=== PATIENT | male | born 1955 | race Caucasian/White ===

== ENCOUNTER 2020-06-11 07:29 | Outpatient (REF) | payer BC, SELFPAY ==
[2020-06-11 08:20] LABS: MANUAL DIFF FLAG NO
[2020-06-11 08:36] LABS: Basophils Percent Auto 0.7 % (0-2); Eosinophils Absolute Auto 0.2 X10*3/uL (0.0-0.4); Eosinophils Percent Auto 5.2 % (0-4); Hemoglobin 15.2 g/dl (14.0-18.0); Imm Gran Abs Auto 0.01 X10*3/uL (0.00-0.03); Imm Gran Pct Auto 0.2 % (0.0-0.4); Lymphocytes Absolute Auto 1.4 X10*3/uL (1.2-4.9); Lymphocytes Percent Auto 32.2 % (20-40); Mean Corpuscular HGB Conc 33.8 g/dl (31.0-36.0); Mean Corpuscular Hemoglobin 29.2 pg (27.0-33.0); Mean Corpuscular Volume 86.5 fL (80-98); Mean Platelet Volume 10.1 fL (9.4-12.4); Monocytes Absolute Auto 0.3 X10*3/uL (0.1-1.2); Monocytes Percent Auto 7.6 % (2-11); Neutrophils Absolute Auto 2.3 X10*3/uL (2.0-8.3); Neutrophils Percent Auto 54.1 % (45-73); Platelet Count 155 X10*3/uL (160-400); Red Cell Distribution Width 13.2 % (11.0-16.0); White Blood Count 4.2 X10*3/uL (4.8-10.8)
[2020-06-11 08:58] LABS: Alanine Aminotransferase 24 U/L (0-40); Albumin Level 4.4 g/dL (3.5-5.0); Alkaline Phosphatase 77 U/L (39-117); Anion Gap 12 (12-20); Aspartate Amino Transferase 22 U/L (5-37); Bilirubin Total 1.4 mg/dL (0.0-1.0); Blood Urea Nitrogen 22 mg/dL (9-16); Calcium 9.1 mg/dL (8.4-10.2); Carbon Dioxide 26 mmol/L (22-29); Chloride 106 mmol/L (96-108); Cholesterol 149 mg/dL; Estimated Glomerular Filt Rate > 60; Glucose Random 101 mg/dL (60-115); HDL Cholesterol 54 mg/dL; LDL Cholesterol Calculated 81 mg/dl; Potassium 4.8 mmol/L (3.3-5.1); Sodium 139 mmol/L (135-145); Total Protein 7.1 g/dL (6.5-8.0); Triglycerides 70 mg/dL
[2020-06-11 09:20] LABS: Thyroid Stimulating Hormone 0.86 uIU/mL (0.32-4.0)
== END 2020-06-11 07:30 | disposition home or self-care (01) ==
LOC: HO.LAB 07:29
PROVIDERS: Visit Provider Internal Medicine
DX: I10 Essential (primary) hypertension (principal); E78.00 Pure hypercholesterolemia, unspecified
CPT/HCPCS: 36415; 80053; 80061; 84443; 85025

== ENCOUNTER 2020-12-15 08:30 | Outpatient (REF) | payer MEDICARE, SELFPAY ==
--- NOTE | ~2020-12-15 | XR_ITS ---
EXAMINATION: XR SHOULDER, LEFT CLINICAL INFORMATION: Left shoulder pain. COMPARISON: None TECHNIQUE: AP external rotation, Grashey, scapular Y, and axillary views of the left shoulder. FINDINGS: Moderate acromioclavicular marginal osteophytes. Mild glenohumeral joint space narrowing with tiny marginal osteophytes. Lateral subacromial spurring. No acute fracture or dislocation. No lytic or blastic osseous lesion. XR/XR shoulder LT min 2V IMPRESSION: Moderate acromioclavicular osteoarthritis with subacromial spurring. Mild glenohumeral osteoarthritis.
== END 2020-12-15 08:31 | disposition home or self-care (01) ==
LOC: HO.XRAY 08:30
PROVIDERS: PCP Internal Medicine; Visit Provider Internal Medicine
DX: M25.512 Pain in left shoulder (principal); G89.29 Other chronic pain
CPT/HCPCS: 73030

== ENCOUNTER 2024-05-29 08:12 | Day surgery (SDC) | payer MEDICARE, SELFPAY ==
--- OUTSIDE RECORDS SUMMARY | 2024-04-21 12:47 | XMS_ITS | Patient Health Record ---
Author Organization [facility] Address [address] [place] [phone] Care Team Providers Care Facing Baster Name Role Phone Walter Olivas MD Primary Care Provider Herman Gama Unavailable [phone] Bridger David Jr Unavailable ALLERGIES No Known Allergies REASON FOR REFERRAL No Information MEDICATIONS Medication SIG (Take, Route, Frequency, Duration) Notes Start Date End Date Status Atorvastatin Calcium 80 MG 1 tablet Oral ly Once a day Active tylenol 1 tab Oral for 14 days prn Active Lisinopril 5 MG 1 tablet Orally Once a day Active SOCIAL HISTORY Sex Assigned At : Social History Observation Description Sex Assigned At Unknown PROBLEMS Problem Type ICD Code Onset Dates Problem Status W/U Status Risk SNOMED Code Notes Problem Colon cancer screening (Z12.11) Active confirmed Colon cancer screening (318660286) VITAL SIGNS Blood pressure diastolic 00 mm Hg 01/16/2024 Height 67 in 01/16/2024 Blood pressure systolic 00 mm Hg 01/16/2024 Weight 194 lbs 01/16/2024 BMI 30.38 kg/m2 01/16/2024 Encounters Encounter Location Date Provider Diagnosis [facility] [address] [place] [phone] 01/15/2024 Bridger David Jr [facility] [address] [place] [phone] 01/16/2024 Herman Shaffer Colon cancer screening Z12.11 ASSESSMENTS Encounter Date Diagnosis Assessment Notes Treatment Notes Treatment Clinical Notes 01/16/2024 Colon cancer screening (ICD-10 - Z12.11) PLAN OF TREATMENT Future Test Test Name Order Date COLONOSCOPY 07/22/2013 COLONOSCOPY 01/16/2024 Next Appt Details Provider Name:Herman Shaffer , 05/29/2024 10:00:00 AM, [address] [facility] , [place], [place], [id number], Insurance Providers Payer Name Payer Address Payer Phone Subscriber Number Group Number Insured Name Patient Relationship to Insured Coverage Start Date Coverage End Date [place]ARE OF [place] [address] [place] [address] [phone] [id number] DEEPTHI GUILLEN Self - patient is the insured MED[employer] ATTN CLAIMS [address] [place] [address] [id number] DEEPTHI GUILLEN Self - patient is the insured MEDICAL (GENERAL) HISTORY Medical History History ICD Code hypertension Prostate [id number] below Hyperlipidemia Denies [place],DM,CVA,Lung disease,renal dise ase Negative colonoscopy with Dr. Gómez in 07/2002 except for hemorrhoids Negative screening colonoscopy in 2013 Surgical History Surgery Date(Month/Year) Prostate cancer--prostatecto my in [address] Spencer at [facility] Right knee meniscus
--- OUTSIDE RECORDS SUMMARY | 2024-04-21 12:47 | XMS_ITS ---
Author Organization [facility] Address [address] [facility] [address] [place] [phone] Care Team Providers Care Geometry Tutor Name Role Phone Walter Olivas MD Primary Care Provider Herman Gama Unavailable [phone] Bridger David Jr Unavailable REASON FOR VISIT Patient presents today for a SCREENING COLON Encounters Encounter Location Date Provider Diagnosis [facility] [address] [facility] [address] [place] [phone] 01/15/2024 Bridger David Jr PLAN OF TREATMENT Next Appt Details Provider Name:Herman Shaffer , 05/29/2024 10:00:00 AM, [address] [facility] , [place], [place], [id number],
[2024-05-27 14:50] VITALS: BMI 30.4
[2024-05-29 08:57] VITALS: BP 134/93; PULSE 72; RESP 13; TEMP 36.9; O2SAT 97; BMI 29.9
--- NOTE | 2024-05-29 08:59 | P.CONAN_ITS ---
HPI - Anesthesia Eval Consult details Narrative: colon screen [facility] Past Medical History Medical History Hyperlipidemia History of prostate cancer (2001) HTN (hypertension) Family History Family history of problems with anesthesia: No Surgical History Surgical History Hx of meniscectomy of right knee Hx of prostatectomy (2001) Hx of colonoscopy History of Problems with Anesthesia: No Social History Social History Advance Directives: No Advance Directives Information Provided: Yes Meds Allergies Allergy/AdvReac Type Severity Reaction Status Date / Time No Known Allergies Allergy Verified 05/29/24 08:44 Active Medications: Current Medications Sodium Biphosphate/Sodium Phosphate (Sodium Phosphate,[place]riscoe-Dibasic 133 Ml Enema) 133 ml [place] ONCE PRN PRN Reason: Poor Colonoscopy Prep Results Home Medications ?Medication ?Instructions ?Recorded ?Confirmed ?Last Taken ?Type acetaminophen 325 mg capsule 325 mg PO QID PRN Pain 05/27/24 05/27/24 Unknown History atorvastatin 80 mg tablet 80 mg PO DAILY 05/27/24 05/27/24 Unknown History lisinopril 5 mg tablet 5 mg PO DAILY 05/27/24 05/29/24 05/29/24 History Exam Height,Weight and Vital Signs: Height 5 ft 7 in Weight 87.997 kg Airway Mallampati Class: II TM Dist: >3cm Neck ROM: Full Heart: rrr Lungs: cta Assessment and Plan Assessment Anesthesia Assessment: Anesthesia Plan Discussed Final Anesthetic Review Family History of Problems with Anesthesia: No History of Problems with Anesthesia: No NPO: Yes ASA Class: II Final Preanesthetic Review: No Changes in Pt Med Stat, Meds/Allgs Chart Reviewed, Consent Obtained/Reviewed and Anes Risks/Benef Reviewed Patient Risk: Low Procedure Risk: Low Anesthetic Plan Anesthetic Plan: MAC: Disposition: Standard PACU
[2024-05-29] MEDS: Lactated Ringers 1,000 ML 80 ML IVCONT (09:11)
[2024-05-29 10:29] VITALS: BP 109/75; PULSE 80; RESP 12; TEMP 36.1; O2SAT 97
--- NOTE | 2024-05-29 10:33 | P.BOP_ITS ---
Brief Operative Note Date of Service: 05/29/24 Pre-op diagnosis: Screening Post-op diagnosis: other (Colon polyp) Procedure: Colonoscopy to the cecum and TI with bx/removal of polyp Surgeon: Herman Shaffer MD Anesthesia: MAC Was an Cigarette Book Maker used for this Procedure?: No Estimated blood loss (mL): 2.0 Pathology: other (A. Polyp at 60cm) Condition: stable Disposition: PACU
[2024-05-29 10:44] VITALS: BP 113/74; PULSE 68; RESP 15; TEMP 36.1; O2SAT 95
--- NOTE | 2024-05-29 11:02 | OP_ITS ---
DATE OF SERVICE: 05/29/2024 SURGEON: Herman Shaffer MD INDICATIONS: The patient presents for evaluation of colorectal cancer screening. Full consent has been obtained from him for this, including risks of bleeding and perforation. PREOPERATIVE DIAGNOSIS: Colorectal cancer screening. POSTOPERATIVE DIAGNOSIS: PROCEDURE PERFORMED: Colonoscopy to the cecum and terminal ileum with biopsy and removal of polyp. ESTIMATED BLOOD LOSS: COMPLICATIONS: ANESTHESIA: Medication used, monitored anesthesia care. ASSISTANTS: SPECIMENS: POSTOPERATIVE DIAGNOSES: Colorectal cancer screening, small colon polyp, sigmoid diverticulosis, and internal hemorrhoids. DESCRIPTION OF PROCEDURE: The patient was placed in the left lateral decubitus position. The digital rectal exam revealed no abnormalities. The Olympus video pediatric colonoscope was entered into the rectum and advanced easily to the cecum. Once in the cecum, I did identify normal-appearing cecal pouch with appendiceal orifice and a normal-appearing ileocecal valve. The terminal ileum was cannulated and appeared normal. The scope was withdrawn back in the colon. The entire cecum and ileocecal valve appeared normal. The scope was slowly withdrawn assessing all mucosal surfaces carefully. Preparation was excellent. At 60 cm was a flat, approximately 3 mm polyp, which was biopsied and completely removed with a cold biopsy forceps. I did not visualize any other polyps, colitis, nor angiodysplasia. There was a mild amount of sigmoid diverticulosis. In the rectum, scope was retroflexed visualizing internal hemorrhoids, but no other pathology. The rectal mucosa appeared normal. The scope was straightened and withdrawn from the patient. He tolerated the procedure well and was returned to the recovery area in stable condition. IMPRESSION: 1. Small colon polyp. 2. Diverticulosis. 3. Internal hemorrhoids. PLAN: The results of the biopsy will be checked. If this is a tubular adenoma, I would recommend a followup colonoscopy in 5 to 7 years for followup. If it is only hyperplastic then I do think, he would need any further colonoscopies given his age, the otherwise negative exam, 2 previously negative colonoscopies, and no family history of colon cancer. He will otherwise see me on a p.r.n. basis. MD JACI Cool/CHASE / [id number] LONG
== END 2024-05-29 11:06 | disposition home or self-care (01) ==
PROVIDERS: PCP Internal Medicine; Visit Provider Internal Medicine
PROC: 0DJD8ZZ Inspection of Lower Intestinal Tract, Via Natural or Artificial Opening Endoscopic (ICD-10-PCS; CPT 45378; principal; 2024-05-29 10:00)
DX: Z12.11 Encounter for screening for malignant neoplasm of colon (principal); K63.5 Polyp of colon; K57.30 Diverticulosis of large intestine without perforation or abscess without bleeding; K64.8 Other hemorrhoids; I10 Essential (primary) hypertension; E78.5 Hyperlipidemia, unspecified; Z85.46 Personal history of malignant neoplasm of prostate; Z79.899 Other long term (current) drug therapy; Z98.890 Other specified postprocedural states
CPT/HCPCS: 45380; 88305; J2704

== ENCOUNTER 2024-09-21 10:14 | Outpatient (REF) | payer MEDICARE, SELFPAY ==
--- NOTE | ~2024-09-21 | XR_ITS ---
EXAMINATION: XR CHEST CLINICAL INFORMATION: CHRONIC COUGH COMPARISON: None available. TECHNIQUE: 2 views of the chest were obtained. FINDINGS: Great saphenous within normal limits. There is atherosclerotic calcification visible in the aortic arch. The aorta is mildly tortuous. Lungs are clear bilaterally. Mild degenerative changes are evident in the thoracic spine. XR/XR chest 2V IMPRESSION: No acute disease. Electronically signed by: Justin Ornelas MD 09/21/2024 11:24 AM EDT
--- OUTSIDE RECORDS SUMMARY | 2024-09-21 11:23 | XMS_ITS | Patient Health Record ---
Author Organization [facility] Address [address] [place] [phone] Care Team Providers Care Drywall Boardhanger Name Role Phone Walter Olivas MD Primary Care Provider Herman Gama Unavailable [phone] Bridger David Jr Unavailable [phone] Allergies No Known Allergies Results Component Value Reference Range Notes Pathology Reviewed date:06/07/2024 11:38:28 PM Interpretation: Performing Lab:[facility], [address] [place] [phone] Notes/Report: Name: Rg Laird ary Azevedo Age/Sex: 68/M : 1955 Unit#: [id number] Attend Dr: Herman Shaffer MD Re05/29/24 Status : [facility] Location: [facility] Disch: SPEC : [id number] RECD: 05/29/24-1205 STATUS: REMBERTO JAMES NUM: [id number] HERO: 05/29/24-[address] [facility] [address]: Herman Shaffer MD ENTERED: 05/29/24- 14 SP TYPE: Surgical OTHR DR: Walter Olivas MD ORDERED: HE Stain/3, Gross Micro L4 Diagnosis Colon, 60 cm, polype ctomy: Hyperplastic mucosal polyp; multiple additional levels examined. Clinical History Pre-Op Dx: Encounter for screening for malignant neoplasm of colon Post-Op Dx: Polyps, diverticulosis, hemorrhoids Microscopic Description Microscopic sections reviewed. Material Received Polyp at 60 Gross Description Received in formalin labeled ?polyp at 60? is a fragment of pink white soft tissue measuring 0.3 cm in greatest d imension which is wrapped in lens paper and entirely submitted for microscopic examinat ion, 1 piece in cassette A. ([facility]) Copies To: Walter Olivas MD [address] [id number] Herman Shaffer MD [address] [place] [id number] Signed (si gnature on file) Herrera Rabago MD 06/02/24 1135 END OF REPORT Reason For Referral No Information Medications Medication SIG (Take, Route, Frequency, Duration) Notes Start Date End Date Status Atorvastatin Calcium 80 MG 1 tablet Oral ly Once a day Active tylenol 1 tab Oral for 14 days prn Active Lisinopril 5 MG 1 tablet Orally Once a day Active Problems Problem Type SNOMED Code ICD Code Onset Dates Problem Status W/U Status Risk Notes Problem Colon cancer screening (Z12.11) Active confirmed Vital Signs Blood pressure diastolic 00 mm Hg 01/16/2024 Height 67 in 01/16/2024 Blood pressure systolic 00 mm Hg 01/16/2024 Weight 194 lbs 01/16/2024 BMI 30.38 kg/m2 01/16/2024 Encounters Encounter Location Date Provider Diagnosis [facility] [address] [place] [id number] 05/29/2024 Herman Shaffer Colon cancer screeni ng Z12.11 ; Colon polyps K63.5 ; Diverticulosis of large intestine without perforation or abscess without bleeding K57.30 and Other hemorrhoids K64.8 [facility] [address] [place] [phone] 01/16/2024 Herman Shaffer Colon cancer screeni ng Z12.11 [facility] [address] [place] [phone] 06/05/2024 Herman Shaffer Assessments Encounter Date Diagnosis (ICD Code) Assessment Notes Treatment Notes Treatment Clinical Notes Section Notes 05/29/2024 Colon cancer screening (ICD-10 - Z12.11) 05/29/2024 Colon polyps (ICD-10 - K63.5) 01/16/2024 Colon cancer screening (ICD-10 - Z12.11) Overall, Blayne appears quite well. Given his age, excellent clinical appearance, and last colonoscopy over 10 years ago, I did recommend a followup colonoscopy for screening purposes. We did review the rationale for that regard to colon cancer prevention. Full consent was obtained for this, including risks of bleeding and perforation. The procedure will be done with monitored anesthesia care. Blayne was comfortable with this plan. Thank you again for allowing me to participate in Blayne's care. I shall continue to keep you advised of his progress. 05/29/2024 Diverticulosis of large intestine without perforation or abscess without bleeding (ICD-10 - K57.30) 05/29/2024 Other hemorrhoids (ICD-10 - K64.8) Plan Of Treatment Future Test Test Name Order Date COLONOSCOPY 07/22/2013 COLONOSCOPY 01/16/2024 Insurance Providers Payer Name Payer Address Payer Phone Subscriber Number Group Number Insured Name Patient Relationship to Insured Coverage Start Date Coverage End Date [place]ARE OF [place] [address] [place] [address] [id number] DEEPTHI GUILLEN Self - patient is the insured MED[employer] ATTN CLAIMS [address] [place] [phone] [id number] DEEPTHI GUILLEN Self - patient is the insured Medical (General) History Medical History History ICD Code hypertension Prostate [id number] below Hyperlipidemia Denies CA,DM,CVA,Lung disease,renal dise ase Negative colonoscopy with Dr. Gómez in 07/2002 except for hemorrhoids Negative screening colonoscopy in 2013 Surgical History Surgery Date(Month/Year) Prostate cancer--prostatecto my in [address] Spencer at [facility] Right knee meniscus
== END 2024-09-21 10:15 | disposition home or self-care (01) ==
LOC: HO.HMGCX 10:14
PROVIDERS: PCP Internal Medicine; Visit Provider Internal Medicine
DX: R05.3 Chronic cough (principal)
CPT/HCPCS: 71046

== ENCOUNTER → 2024-09-21 10:20 | Outpatient (BNV) | payer MEDICARE, SELFPAY | PROVIDERS: PCP Internal Medicine; Visit Provider Radiology Diagnostic Radiology | DX: I70.0 Atherosclerosis of aorta (principal) | CPT/HCPCS: 71046 ==